=== PATIENT | female | born 1960 | race Caucasian/White ===

== ENCOUNTER 2016-05-22 18:06 | Inpatient (IN) | payer MEDICAID, OTHER ==
[~2016-05-22] VITALS: Ht 157.5 cm; Wt 125.0 kg
[2016-05-22 19:10] LABS: Basophils # (auto) 0 uL; Basophils % (auto) 0.4 % (0.0-2.0); Eosinophils # (auto) 0.1 uL; Eosinophils % (auto) 1.3 % (0.0-7.0); Hematocrit 33.9 % (36.0-46.0); Hemoglobin 10.8 g/dL (12.2-16.2); Lymphocytes % (auto) 17.5 % (10.0-50.0); Mean Corpuscular Hemoglobin 27.2 pg (28.0-32.0); Mean Corpuscular Hgb Conc. 31.8 g/dL (32.0-36.0); Mean Corpuscular Volume 85.5 fL (80.0-100.0); Mean Platelet Volume 8.7 fL (7.4-10.4); Monocytes # (auto) 0.5 uL; Monocytes % (auto) 8.3 % (0.0-12.0); Neutrophils % (auto) 72.5 % (37.0-80.0); Platelet Count (auto) 234 10^3/uL (140-450); Red Cell Distribution Width 15.7 % (11.6-16.0); White Blood Cell 5.5 10^3/uL (4.4-10.8)
[2016-05-22 19:33] LABS: Albumin 2.9 g/dL (3.4-5.0); Bilirubin, Total 0.6 mg/dL (0.2-1.0); Calcium 8.2 mg/dL (8.5-10.1); Potassium 4.4 mmol/L (3.5-5.1); Total Protein 6.4 g/dL (6.4-8.2)
[2016-05-22] MEDS ORDERED: ONDANSETRON HCL 4 MG/2 ML VIAL ONE (22:59)
[2016-05-22] MEDS ORDERED: ONDANSETRON HCL 4 MG/2 ML VIAL IV ONE (23:15)
[2016-05-22] MEDS ORDERED: MORPHINE SULFATE 4 MG/ML SYRG IV ONE (23:15)
[2016-05-22] MEDS ORDERED: cefTRIAXone SOD 500 MG VL IV ONE (23:45)
[2016-05-23] MEDS ORDERED: hydrOXYzine PAMOATE 25 MG CAP PO ONE (00:15)
[2016-05-23] MEDS ORDERED: FUROSEMIDE 40 MG/4 ML VIAL IV ONE (02:30)
[2016-05-23] MEDS ORDERED: PROMETHAZINE HCL 25 MG/ML 1ML IV ONE (02:30)
[2016-05-23] MEDS ORDERED: HYDROmorphone HCL 2 MG/ML VL IV ONE (02:30)
[2016-05-23] MEDS ORDERED: ALBUTEROL SULF 2.5 MG/0.5ML(0.5%) NEB SOLN NEB PRN (07:30)
[2016-05-23] MEDS ORDERED: MORPHINE SULF INJ 2 MG/ML SYRINGE 1ML IV PRN (07:30)
[2016-05-23] MEDS ORDERED: DEXTROSE (50%) 50ML SYRG IV PRN ×2 (07:30→15:45)
[2016-05-23] MEDS ORDERED: InsuLIN REG 1unit/0.01ml Soln (100units/ml) SC SCH (10:00)
[2016-05-23] MEDS ORDERED: LISINOPRIL 20 MG TAB PO SCH (10:00)
[2016-05-23] MEDS ORDERED: ACCU-CHEK COMFORT CURVE STRIP VI SCH (10:00)
[2016-05-23] MEDS: CARVEDILOL 3.125 MG TAB PO SCH ×2 (10:00→21:48)
[2016-05-23] MEDS: PANTOPRAZOLE SODIUM 40 MG/10 ML VIAL IV SCH (12:22)
[2016-05-23] MEDS: ONDANSETRON HCL 4 MG/2 ML VIAL IV PRN (12:22)
[2016-05-23] MEDS: FUROSEMIDE 40 MG/4 ML VIAL IV SCH (12:28)
[2016-05-23] MEDS: GEMFIBROZIL 600 MG TAB PO SCH ×2 (12:29→21:45)
[2016-05-23] MEDS: DOCUSATE SOD 100 MG CAP PO SCH ×2 (12:29→21:45)
[2016-05-23] MEDS: ASPirin 81 mg TAB PO SCH (12:29)
[2016-05-23 12:42] VITALS: BP 108/55
[2016-05-23 16:09] VITALS: BP 114/57
[2016-05-23] MEDS: HYDROmorphone HCL 2 MG/ML VL IV PRN ×2 (16:29→20:53)
[2016-05-23] MEDS: ACCU-CHEK COMFORT CURVE STRIP VI SCH ×2 (16:50→21:50)
[2016-05-23] MEDS: InsuLIN REG 1unit/0.01ml Soln (100units/ml) SC SCH ×2 (16:57→21:52)
[2016-05-23 21:12] LABS: Urine Bilirubin Negative (Negative); Urine Blood Negative /uL (Negative); Urine Color Yellow (Yellow); Urine Glucose Normal (Normal); Urine Hyaline Cast FEW /lpf (0 - 2); Urine Ketone Negative (Negative); Urine Nitrite Negative (Negative); Urine RBC 1 /hpf (0 - 4); Urine Urobilinogen Normal (Negative); Urine pH 5.5 (5.0-8.0)
[2016-05-23 22:00] VITALS: BP 145/80
[2016-05-24] MEDS: HYDROmorphone HCL 2 MG/ML VL IV PRN ×5 (04:40→23:20)
[2016-05-24 05:00] VITALS: BP 109/67
[2016-05-24 05:24] LABS: Basophils # (auto) 0 uL; Basophils % (auto) 0.5 % (0.0-2.0); Eosinophils # (auto) 0.1 uL; Eosinophils % (auto) 2.1 % (0.0-7.0); Hematocrit 32.5 % (36.0-46.0); Hemoglobin 10.4 g/dL (12.2-16.2); Lymphocytes # (auto) 2.5 uL; Lymphocytes % (auto) 37.4 % (10.0-50.0); Mean Corpuscular Hemoglobin 27.4 pg (28.0-32.0); Mean Corpuscular Hgb Conc. 31.9 g/dL (32.0-36.0); Mean Corpuscular Volume 85.9 fL (80.0-100.0); Mean Platelet Volume 8.2 fL (7.4-10.4); Monocytes # (auto) 0.7 uL; Monocytes % (auto) 10.4 % (0.0-12.0); Neutrophils # (auto) 3.3 uL; Neutrophils % (auto) 49.6 % (37.0-80.0); Platelet Count (auto) 299 10^3/uL (140-450); Red Cell Distribution Width 16.3 % (11.6-16.0); White Blood Cell 6.6 10^3/uL (4.4-10.8)
[2016-05-24 05:42] LABS: Albumin 2.8 g/dL (3.4-5.0); BUN/Creatinine Ratio 24.3; Calcium 7.9 mg/dL (8.5-10.1); Potassium 4.6 mmol/L (3.5-5.1)
[2016-05-24 05:44] LABS: Bilirubin, Total 0.4 mg/dL (0.2-1.0); Total Protein 6.4 g/dL (6.4-8.2)
[2016-05-24] MEDS: ONDANSETRON HCL 4 MG/2 ML VIAL IV PRN ×5 (06:14→23:20)
[2016-05-24] MEDS: ACCU-CHEK COMFORT CURVE STRIP VI SCH ×4 (06:16→22:29)
[2016-05-24] MEDS: InsuLIN REG 1unit/0.01ml Soln (100units/ml) SC SCH ×4 (06:26→22:00)
[2016-05-24 08:04] VITALS: BP 111/68
[2016-05-24 08:07] LABS: Magnesium 2.2 mg/dL (1.6-2.6); Phosphorus 4.8 mg/dL (2.6-4.90); Uric Acid 11.1 mg/dL (2.6-6.0)
[2016-05-24 09:32] VITALS: BP 111/56
[2016-05-24] MEDS ORDERED: LISINOPRIL 20 MG TAB PO SCH (10:00)
[2016-05-24] MEDS ORDERED: CARV3.1213 PO (10:05)
[2016-05-24] MEDS ORDERED: CLOP75TA28 PO (10:05)
[2016-05-24] MEDS ORDERED: INSLANTI SC (10:05)
[2016-05-24] MEDS ORDERED: DOCU-137 PO (10:05)
[2016-05-24] MEDS ORDERED: LISI-646 PO (10:05)
[2016-05-24] MEDS ORDERED: BIMA0.01 EACHEYE (10:05)
[2016-05-24] MEDS ORDERED: GLIP-116 PO (10:05)
[2016-05-24] MEDS ORDERED: OMEP20CA5 PO (10:05)
[2016-05-24] MEDS ORDERED: ASPI-498 PO (10:05)
[2016-05-24] MEDS ORDERED: FURO40TA PO (10:05)
[2016-05-24] MEDS ORDERED: GEMF600T3 PO (10:05)
[2016-05-24] MEDS: FUROSEMIDE 40 MG/4 ML VIAL IV SCH (11:22)
[2016-05-24] MEDS: PANTOPRAZOLE SODIUM 40 MG/10 ML VIAL IV SCH (11:22)
[2016-05-24] MEDS: DOCUSATE SOD 100 MG CAP PO SCH ×2 (11:22→22:09)
[2016-05-24] MEDS: CARVEDILOL 3.125 MG TAB PO SCH ×2 (11:23→22:00)
[2016-05-24] MEDS: ASPirin 81 mg TAB PO SCH (11:23)
[2016-05-24] MEDS: GEMFIBROZIL 600 MG TAB PO SCH ×2 (11:23→22:09)
[2016-05-24 13:21] VITALS: BP 94/57
[2016-05-24 15:30] VITALS: BP 108/62
[2016-05-24 20:43] VITALS: BP 96/54
[2016-05-25 04:39] VITALS: BP 124/60
[2016-05-25 06:40] LABS: Basophils # (auto) 0 uL; Basophils % (auto) 0.5 % (0.0-2.0); Eosinophils # (auto) 0.3 uL; Eosinophils % (auto) 3.6 % (0.0-7.0); Hemoglobin 10.2 g/dL (12.2-16.2); Lymphocytes # (auto) 2.8 uL; Mean Corpuscular Hemoglobin 27.2 pg (28.0-32.0); Mean Corpuscular Hgb Conc. 31.9 g/dL (32.0-36.0); Mean Corpuscular Volume 85.1 fL (80.0-100.0); Mean Platelet Volume 8.5 fL (7.4-10.4); Monocytes # (auto) 0.9 uL; Neutrophils # (auto) 4.4 uL; Neutrophils % (auto) 51.9 % (37.0-80.0); Platelet Count (auto) 286 10^3/uL (140-450); Red Cell Distribution Width 15.9 % (11.6-16.0); White Blood Cell 8.5 10^3/uL (4.4-10.8)
[2016-05-25 06:53] LABS: BUN/Creatinine Ratio 23.2; Calcium 8.2 mg/dL (8.5-10.1); Potassium 4.6 mmol/L (3.5-5.1)
[2016-05-25] MEDS: ACCU-CHEK COMFORT CURVE STRIP VI SCH ×4 (06:58→21:49)
[2016-05-25] MEDS: InsuLIN REG 1unit/0.01ml Soln (100units/ml) SC SCH ×4 (06:58→21:48)
[2016-05-25 08:00] VITALS: BP 129/68
[2016-05-25] MEDS ORDERED: traMADol HCL 50 MG TAB PO PRN (10:15)
[2016-05-25] MEDS ORDERED: DEXTROSE (50%) 50ML SYRG IV PRN (10:15)
[2016-05-25] MEDS: GEMFIBROZIL 600 MG TAB PO SCH ×2 (10:42→21:45)
[2016-05-25] MEDS: DOCUSATE SOD 100 MG CAP PO SCH ×2 (10:42→21:45)
[2016-05-25] MEDS: ASPirin 81 mg TAB PO SCH (10:42)
[2016-05-25] MEDS: ONDANSETRON HCL 4 MG/2 ML VIAL IV PRN ×3 (10:43→21:55)
[2016-05-25] MEDS: HYDROmorphone HCL 2 MG/ML VL IV PRN ×3 (10:43→21:45)
[2016-05-25] MEDS: PANTOPRAZOLE SODIUM 40 MG/10 ML VIAL IV SCH (10:53)
[2016-05-25 12:00] VITALS: BP 128/72
[2016-05-25 16:00] VITALS: BP 127/68
[2016-05-25] MEDS: ceFAZolin 1GM/50ML D5W 50 ML IV SCH ×2 (18:00→21:45)
[2016-05-25] MEDS: FUROSEMIDE 40 MG/4 ML VIAL IV SCH (20:45)
[2016-05-25] MEDS: INSULIN DETEMIR(LEVEMIR) 1unit/0.01ml Soln (100units/ml) SC SCH (21:49)
[2016-05-25 22:00] VITALS: BP 133/74
[2016-05-26 05:29] VITALS: BP 137/66
[2016-05-26] MEDS: ceFAZolin 1GM/50ML D5W 50 ML IV SCH ×3 (05:41→22:09)
[2016-05-26] MEDS: ACCU-CHEK COMFORT CURVE STRIP VI SCH ×4 (05:41→22:18)
[2016-05-26] MEDS: InsuLIN REG 1unit/0.01ml Soln (100units/ml) SC SCH ×4 (05:41→22:18)
[2016-05-26] MEDS: FUROSEMIDE 40 MG/4 ML VIAL IV SCH ×2 (05:41→17:35)
[2016-05-26] MEDS: ONDANSETRON HCL 4 MG/2 ML VIAL IV PRN ×3 (06:39→13:12)
[2016-05-26] MEDS: HYDROmorphone HCL 2 MG/ML VL IV PRN ×4 (06:39→22:18)
[2016-05-26 08:08] LABS: Albumin 2.9 g/dL (3.4-5.0); BUN/Creatinine Ratio 22.9; Bilirubin, Total 0.3 mg/dL (0.2-1.0); Calcium 8.3 mg/dL (8.5-10.1); Potassium 4.5 mmol/L (3.5-5.1); Total Protein 6.6 g/dL (6.4-8.2)
[2016-05-26 08:22] LABS: Basophils # (auto) 0.1 uL; Basophils % (auto) 1.1 % (0.0-2.0); Eosinophils # (auto) 0.3 uL; Eosinophils % (auto) 3.7 % (0.0-7.0); Hematocrit 35.7 % (36.0-46.0); Hemoglobin 11.4 g/dL (12.2-16.2); Lymphocytes # (auto) 2.7 uL; Lymphocytes % (auto) 32.2 % (10.0-50.0); Mean Corpuscular Hemoglobin 27.5 pg (28.0-32.0); Mean Corpuscular Hgb Conc. 32.1 g/dL (32.0-36.0); Mean Corpuscular Volume 85.6 fL (80.0-100.0); Mean Platelet Volume 8.8 fL (7.4-10.4); Monocytes # (auto) 1.2 uL; Monocytes % (auto) 13.7 % (0.0-12.0); Neutrophils # (auto) 4.2 uL; Neutrophils % (auto) 49.3 % (37.0-80.0); Platelet Count (auto) 263 10^3/uL (140-450); Red Cell Distribution Width 15.6 % (11.6-16.0); White Blood Cell 8.5 10^3/uL (4.4-10.8)
[2016-05-26 08:30] VITALS: BP 133/66
[2016-05-26] MEDS: INSULIN DETEMIR(LEVEMIR) 1unit/0.01ml Soln (100units/ml) SC SCH ×2 (10:00→22:17)
[2016-05-26] MEDS: GEMFIBROZIL 600 MG TAB PO SCH ×2 (11:39→22:09)
[2016-05-26] MEDS: ASPirin 81 mg TAB PO SCH (11:39)
[2016-05-26] MEDS: PANTOPRAZOLE SODIUM 40 MG/10 ML VIAL IV SCH (11:40)
[2016-05-26] MEDS: DOCUSATE SOD 100 MG CAP PO SCH ×2 (11:40→22:09)
[2016-05-26] MEDS: METOLAZONE 5 MG TAB PO SCH (11:43)
[2016-05-26] MEDS: SPIRONOLACTONE 25 MG TAB PO SCH ×2 (11:57→17:34)
[2016-05-26 12:57] VITALS: BP 128/63
[2016-05-26 16:30] VITALS: BP 129/73
[2016-05-26] MEDS: PROMETHAZINE HCL 25 MG/ML 1ML IV PRN (17:46)
[2016-05-26 22:00] VITALS: BP 143/68
[2016-05-27 05:42] VITALS: BP 146/56
[2016-05-27] MEDS: SPIRONOLACTONE 25 MG TAB PO SCH (06:23)
[2016-05-27] MEDS: FUROSEMIDE 40 MG/4 ML VIAL IV SCH (06:23)
[2016-05-27] MEDS: ceFAZolin 1GM/50ML D5W 50 ML IV SCH ×3 (06:23→21:46)
[2016-05-27] MEDS: ACCU-CHEK COMFORT CURVE STRIP VI SCH ×4 (06:29→21:46)
[2016-05-27] MEDS: InsuLIN REG 1unit/0.01ml Soln (100units/ml) SC SCH ×4 (06:31→21:56)
[2016-05-27] MEDS: HYDROmorphone HCL 2 MG/ML VL IV PRN ×3 (06:37→18:42)
[2016-05-27] MEDS: PROMETHAZINE HCL 25 MG/ML 1ML IV PRN ×3 (06:38→17:55)
[2016-05-27 07:23] LABS: Calcium 8.7 mg/dL (8.5-10.1); Potassium 4.8 mmol/L (3.5-5.1)
[2016-05-27 09:00] VITALS: BP 123/59
[2016-05-27 09:40] VITALS: BP 146/56
[2016-05-27] MEDS: INSULIN DETEMIR(LEVEMIR) 1unit/0.01ml Soln (100units/ml) SC SCH ×2 (10:00→21:55)
[2016-05-27] MEDS: ASPirin 81 mg TAB PO SCH (10:25)
[2016-05-27] MEDS: DOCUSATE SOD 100 MG CAP PO SCH ×2 (10:25→21:45)
[2016-05-27] MEDS: METOLAZONE 5 MG TAB PO SCH (10:26)
[2016-05-27] MEDS: GEMFIBROZIL 600 MG TAB PO SCH ×2 (10:27→21:46)
[2016-05-27] MEDS: PANTOPRAZOLE SODIUM 40 MG/10 ML VIAL IV SCH (10:28)
[2016-05-27 13:00] VITALS: BP 127/71
[2016-05-27 16:00] VITALS: BP 136/70
[2016-05-27] MEDS: FUROSEMIDE 20 MG TAB PO SCH (17:36)
[2016-05-27] MEDS: CARVEDILOL 3.125 MG TAB PO SCH (21:45)
[2016-05-27 22:18] VITALS: BP 153/87
[2016-05-28] MEDS: PROMETHAZINE HCL 25 MG/ML 1ML IV PRN ×3 (03:37→19:34)
[2016-05-28] MEDS: HYDROmorphone HCL 2 MG/ML VL IV PRN ×3 (03:37→19:34)
[2016-05-28 05:30] VITALS: BP 160/91
[2016-05-28] MEDS: ceFAZolin 1GM/50ML D5W 50 ML IV SCH ×3 (05:39→21:39)
[2016-05-28] MEDS: FUROSEMIDE 20 MG TAB PO SCH ×2 (05:40→17:56)
[2016-05-28] MEDS: ACCU-CHEK COMFORT CURVE STRIP VI SCH ×4 (06:37→22:11)
[2016-05-28] MEDS: InsuLIN REG 1unit/0.01ml Soln (100units/ml) SC SCH ×4 (06:39→22:09)
[2016-05-28 06:52] LABS: Basophils # (auto) 0 uL; Basophils % (auto) 0.5 % (0.0-2.0); Eosinophils # (auto) 0.4 uL; Eosinophils % (auto) 6.2 % (0.0-7.0); Hematocrit 35.2 % (36.0-46.0); Lymphocytes # (auto) 2.5 uL; Mean Corpuscular Hemoglobin 27.1 pg (28.0-32.0); Mean Corpuscular Hgb Conc. 31.2 g/dL (32.0-36.0); Mean Corpuscular Volume 86.8 fL (80.0-100.0); Monocytes # (auto) 0.8 uL; Monocytes % (auto) 11.9 % (0.0-12.0); Neutrophils # (auto) 2.7 uL; Neutrophils % (auto) 42.4 % (37.0-80.0); Platelet Count (auto) 375 10^3/uL (140-450); Red Cell Distribution Width 16.2 % (11.6-16.0); White Blood Cell 6.4 10^3/uL (4.4-10.8)
[2016-05-28 07:10] LABS: Calcium 9.1 mg/dL (8.5-10.1); Potassium 4.6 mmol/L (3.5-5.1)
[2016-05-28 08:00] VITALS: BP_SYST 112; BP_SYST 127; BP_DIAS 61; BP_DIAS 69
[2016-05-28] MEDS: INSULIN DETEMIR(LEVEMIR) 1unit/0.01ml Soln (100units/ml) SC SCH ×2 (10:00→22:11)
[2016-05-28] MEDS ORDERED: FUROSEMIDE 20 MG TAB PO SCH (10:00)
[2016-05-28] MEDS: DOCUSATE SOD 100 MG CAP PO SCH ×2 (10:20→21:40)
[2016-05-28] MEDS: GEMFIBROZIL 600 MG TAB PO SCH ×2 (10:20→21:39)
[2016-05-28] MEDS: CARVEDILOL 3.125 MG TAB PO SCH ×2 (10:20→21:40)
[2016-05-28] MEDS: ASPirin 81 mg TAB PO SCH (10:20)
[2016-05-28] MEDS: PANTOPRAZOLE SODIUM 40 MG/10 ML VIAL IV SCH (10:21)
[2016-05-28] MEDS ORDERED: SACC250C PO (10:50)
[2016-05-28] MEDS ORDERED: CEPH-37 PO (10:50)
[2016-05-28 12:00] VITALS: BP_SYST 116; BP_SYST 127; BP_DIAS 63; BP_DIAS 64
[2016-05-28 16:00] VITALS: BP 128/72
[2016-05-28] MEDS: PANTOPRAZOLE 40 MG TAB PO SCH (21:40)
[2016-05-28 22:00] VITALS: BP 189/74
[2016-05-28 23:00] VITALS: BP 151/73
[2016-05-29] MEDS: PROMETHAZINE HCL 25 MG/ML 1ML IV PRN (05:48)
[2016-05-29] MEDS: HYDROmorphone HCL 2 MG/ML VL IV PRN (05:51)
[2016-05-29 05:53] VITALS: BP 126/69
[2016-05-29] MEDS: ceFAZolin 1GM/50ML D5W 50 ML IV SCH ×2 (05:53→14:00)
[2016-05-29] MEDS: FUROSEMIDE 20 MG TAB PO SCH ×2 (05:55→17:20)
[2016-05-29] MEDS: InsuLIN REG 1unit/0.01ml Soln (100units/ml) SC SCH ×3 (05:58→17:00)
[2016-05-29] MEDS: ACCU-CHEK COMFORT CURVE STRIP VI SCH ×3 (05:58→17:00)
[2016-05-29 07:11] LABS: BUN/Creatinine Ratio 31.6; Calcium 9.1 mg/dL (8.5-10.1); Potassium 4.3 mmol/L (3.5-5.1)
[2016-05-29] MEDS ORDERED: diphenhdrAMINE HCL 50 MG/1 ML VL ONE (07:14)
[2016-05-29] MEDS ORDERED: fentaNYL CITRATE 100 MCG/2 ML VL ONE (07:14)
[2016-05-29] MEDS ORDERED: MIDAZOLAM HCL 5 MG/ML-1ML VIAL ONE (07:14)
[2016-05-29] MEDS ORDERED: SODIUM CHLORIDE LOCK 10 ML ONE (07:14)
[2016-05-29] MEDS ORDERED: LIDOCAINE VISCOUS 2% 15ML UD ONE (07:14)
[2016-05-29 08:31] VITALS: BP 121/66
[2016-05-29 09:12] LABS: INR 1.06 (0.9-1.15); Partial Thromboplastin Time 24.4 sec (22.64-33.71); Prothrombin Time 10.9 sec (9.37-12.3)
[2016-05-29] MEDS: ASPirin 81 mg TAB PO SCH (10:00)
[2016-05-29] MEDS: INSULIN DETEMIR(LEVEMIR) 1unit/0.01ml Soln (100units/ml) SC SCH (10:00)
[2016-05-29] MEDS ORDERED: PANT40TA2 PO (10:20)
[2016-05-29] MEDS: DOCUSATE SOD 100 MG CAP PO SCH (11:10)
[2016-05-29] MEDS: PANTOPRAZOLE 40 MG TAB PO SCH (11:10)
[2016-05-29] MEDS: GEMFIBROZIL 600 MG TAB PO SCH (11:10)
[2016-05-29] MEDS: CARVEDILOL 3.125 MG TAB PO SCH (11:12)
[2016-05-29 13:00] VITALS: BP 133/71
== END 2016-05-29 17:36 | disposition home or self-care (01) | DRG 241 ==
LOC: EDBD 18:06 → ER 18:11 → OVERFLOW 18:12 → EAST 05-23 09:19 → CENTRAL 05-23 10:51
PROVIDERS: ADMIT Family Medicine; ATTEND Internal Medicine
PROC: 0DB68ZX Excision of Stomach, Via Natural or Artificial Opening Endoscopic, Diagnostic (ICD-10-PCS; principal; 2016-05-29 09:55)
DX: K25.9 Gastric ulcer, unspecified as acute or chronic, without hemorrhage or perforation (principal); N17.0 Acute kidney failure with tubular necrosis; I50.33 Acute on chronic diastolic (congestive) heart failure; E11.65 Type 2 diabetes mellitus with hyperglycemia; E11.21 Type 2 diabetes mellitus with diabetic nephropathy; E11.22 Type 2 diabetes mellitus with diabetic chronic kidney disease; N28.0 Ischemia and infarction of kidney; I13.0 Hypertensive heart and chronic kidney disease with heart failure and stage 1 through stage 4 chronic kidney disease, or unspecified chronic kidney disease; K59.00 Constipation, unspecified; D63.8 Anemia in other chronic diseases classified elsewhere; E66.01 Morbid (severe) obesity due to excess calories; F17.210 Nicotine dependence, cigarettes, uncomplicated; J45.909 Unspecified asthma, uncomplicated; L03.311 Cellulitis of abdominal wall; N18.4 Chronic kidney disease, stage 4 (severe); Z59.0 Homelessness; Z90.49 Acquired absence of other specified parts of digestive tract; Z95.5 Presence of coronary angioplasty implant and graft; E78.5 Hyperlipidemia, unspecified; Z88.6 Allergy status to analgesic agent; Z88.8 Allergy status to other drugs, medicaments and biological substances; Z98.61 Coronary angioplasty status; Z68.43 Body mass index [BMI] 50.0-59.9, adult; Z71.6 Tobacco abuse counseling
CPT/HCPCS: 36415; 43239; 71010; 74176; 80048; 80053; 80061; 81001; 82570; 82962; 83036; 83735; 84100; 84156; 84484; 84550; 85025; 85610; 85730; 86803; 87040; 87340; 93005; 93306; 96374; 96375; C9113; J0690; J0696; J1815; J2250; J2405